=== PATIENT | male | born 1990 | race Caucasian/White ===

== ENCOUNTER 2024-07-29 20:57 | Emergency (ER) | payer OTHER ==
[~2024-07-29] VITALS: Ht 175.3 cm; Wt 104.5 kg
[2024-07-29 21:28] VITALS: BP 133/99; PULSE 72; RESP 18; TEMP 98.1; O2SAT 100
[2024-07-29] MEDS: ONDANSETRON HCL 4 MG/2 ML VIAL IVP ONE (22:52)
[2024-07-29 22:53] LABS: EOSINOPHILS % (AUTO) 0.7 % (1.0-6.0); HEMATOCRIT 42.8 % (41-53); HEMOGLOBIN 14.4 g/dL (13.5-17.5); LYMPHOCYTES # (AUTO) 1.3 K/uL (1.0-4.8); MEAN CORPUSCULAR HEMOGLOBIN 30.1 pg (26.0-34.0); MEAN CORPUSCULAR HGB CONC 33.6 G/dL (31.0-37.0); MEAN CORPUSCULAR VOLUME 90 fL (80-100); MONOCYTES # (AUTO) 0.3 K/uL (0.1-1.0); MONOCYTES % (AUTO) 8.3 % (2.0-9.0); NEUTROPHILS # (AUTO) 2.3 K/uL (1.8-7.7); PLATELET COUNT (AUTO) 152 K/uL (150-450); RED BLOOD CELL COUNT(AUTO) 4.78 MIL/uL (4.50-5.90); RED CELL DISTRIBUTION WIDTH 13.1 % (11.5-14.5)
[2024-07-29 23:02] LABS: ANION GAP 8 mmol/L (8-16); CARBON DIOXIDE 30 mmol/L (22-29); CHLORIDE 104 mmol/L (98-107); CREATININE 0.87 mg/dL (0.60-1.30); GLOMERULAR FILTR. RATE CALC > 60 mL/min (>60); GLUCOSE,RANDOM 94 mg/dL (70-110); POTASSIUM 4.1 mmol/L (3.5-5.1); SODIUM SERUM 142 mmol/L (136-145); UREA NITROGEN, BLOOD 11 mg/dL (7-18)
[2024-07-29 23:08] LABS: BILIRUBIN,DIRECT 0.1 mg/dL (0.00-0.20); BILIRUBIN,TOTAL 0.5 mg/dL (0.1-1.0); TOTAL PROTEIN, SERUM 7.4 g/dL (6.4-8.2)
[2024-07-30] MEDS ORDERED: SENN-376 PO (03:19)
[2024-07-30] MEDS ORDERED: POLY119P3 PO (03:19)
== END 2024-07-30 04:06 | disposition home or self-care (01) ==
LOC: EMS 20:57
DX: K59.00 Constipation, unspecified (principal); R10.13 Epigastric pain; F17.210 Nicotine dependence, cigarettes, uncomplicated; Z98.890 Other specified postprocedural states; Z88.5 Allergy status to narcotic agent
CPT/HCPCS: 99285; 96374; 80048; 80076; 83690; 85025; 36415; 74176; J2405; 99284

== ENCOUNTER 2024-10-08 20:14 | Emergency (ER) | payer OTHER ==
[~2024-10-08] VITALS: Ht 175.3 cm; Wt 77.3 kg
[~2024-10-08 20:14] MED LIST: POLY119P3 PO; SENN-376 PO
[2024-10-08 20:28] VITALS: TEMP 97.9
[2024-10-08 21:06] LABS: PLATELET COUNT (AUTO) 154 K/uL (150-450); RED BLOOD CELL COUNT(AUTO) 4.84 MIL/uL (4.50-5.90); RED CELL DISTRIBUTION WIDTH 13.5 % (11.5-14.5); WHITE BLOOD COUNT (AUTO) 5.6 K/uL (4.5-11.0)
[2024-10-08 21:23] LABS: CALCIUM, TOTAL 8.4 mg/dL (8.8-10.5); CREATININE 1.07 mg/dL (0.60-1.30); GLOMERULAR FILTR. RATE CALC > 60 mL/min (>60); GLUCOSE,RANDOM 101 mg/dL (70-110); SODIUM SERUM 141 mmol/L (136-145); UREA NITROGEN, BLOOD 24 mg/dL (7-18)
[2024-10-08] MEDS: IOHEXOL 9 MG/ML 500 ML BOTTLE PO ONE (21:26)
[2024-10-08 21:27] LABS: ASPARTATE AMINOTRANSFERASE 22.0 U/L (15-37); TOTAL PROTEIN, SERUM 7.3 g/dL (6.4-8.2)
[2024-10-08] MEDS: MAG HYDROX/ALUMINUM HYD/SIMETH ES 30 ML SUSPENSION UDCUP PO ONE (22:45)
[2024-10-08] MEDS: FAMOTIDINE 20 MG TABLET PO ONE (22:46)
[2024-10-09 00:29] VITALS: BP 112/67; PULSE 63; RESP 16; O2SAT 98
[2024-10-09] MEDS ORDERED: PANT-31 PO (01:12)
== END 2024-10-09 01:22 | disposition home or self-care (01) ==
LOC: EMS 20:14
DX: K21.9 Gastro-esophageal reflux disease without esophagitis (principal); K59.00 Constipation, unspecified; F17.210 Nicotine dependence, cigarettes, uncomplicated; Z98.890 Other specified postprocedural states; Z88.5 Allergy status to narcotic agent; Z79.899 Other long term (current) drug therapy
CPT/HCPCS: 99284; 74176; 80048; 80076; 83690; 85025; 36415; Q9967

== ENCOUNTER 2024-12-20 23:22 | Inpatient (IN) | payer OTHER ==
[~2024-12-20] VITALS: Ht 175.3 cm; Wt 82.0 kg
[~2024-12-20 23:22] MED LIST changes: +PANT-31 PO
[2024-12-21] MEDS: ONDANSETRON HCL 4 MG/2 ML VIAL IVP ONE (01:00)
[2024-12-21] MEDS: CloNIDine 0.1 MG/24 HOUR PATCH TD ONE (01:00)
[2024-12-21] MEDS: SODIUM CHLORIDE 0.9% 1,000 ML IV ONE (01:27)
[2024-12-21 01:33] LABS: PLATELET COUNT (AUTO) 190 K/uL (150-450); RED BLOOD CELL COUNT(AUTO) 4.54 MIL/uL (4.50-5.90); RED CELL DISTRIBUTION WIDTH 13.6 % (11.5-14.5); WHITE BLOOD COUNT (AUTO) 6.2 K/uL (4.5-11.0)
[2024-12-21 01:41] LABS: CALCIUM, TOTAL 8.5 mg/dL (8.8-10.5); CREATININE 0.88 mg/dL (0.60-1.30); GLOMERULAR FILTR. RATE CALC > 60 mL/min (>60); GLUCOSE,RANDOM 97 mg/dL (70-110); SODIUM SERUM 142 mmol/L (136-145); UREA NITROGEN, BLOOD 16 mg/dL (7-18)
[2024-12-21 01:44] LABS: ALCOHOL, BLOOD (SERUM) < 3 mg/dL (0-10)
[2024-12-21 01:47] LABS: ASPARTATE AMINOTRANSFERASE 20 U/L (15-37); TOTAL PROTEIN, SERUM 7.1 g/dL (6.4-8.2)
[2024-12-21] MEDS ORDERED: ONDANSETRON HCL 4 MG/2 ML VIAL IVP PRN (05:30)
[2024-12-21 06:43] LABS: APPEARANCE,URINE CLEAR (CLEAR); GLUCOSE, URINE (UA) NEGATIVE (NEGATIVE); LEUKOCYTE ESTERASE ,URINE NEGATIVE (NEGATIVE); NITRATE,URINE NEGATIVE (NEGATIVE); OCCULT BLOOD,URINE NEGATIVE (NEGATIVE); PH,URINE DRUG SCREEN 6.5 (5.0-8.0); SPECIFIC GRAVITIY, URINE 1.028 (1.003-1.030)
[2024-12-21 06:50] LABS: ALCOHOL, URINE DRUG SCREEN NEGATIVE (NEGATIVE); AMPHET/METH SCREEN,URINE POSITIVE (NEGATIVE); BARBITURATE SCREEN, URINE NEGATIVE (NEGATIVE); CANNABINOID SCREEN,URINE NEGATIVE (NEGATIVE); COCAINE SCREEN,URINE NEGATIVE (NEGATIVE); METHADONE SCREEN, URINE NEGATIVE (NEGATIVE)
[2024-12-21 08:00] VITALS: BP 118/80; PULSE 63; RESP 19; TEMP 97.3; O2SAT 100
[2024-12-21] MEDS: DOCUSATE SODIUM 100 MG CAPSULE PO SCH (08:51)
[2024-12-21] MEDS: HEPARIN SODIUM,PORCINE 5,000 UNITS/ML VIAL SQ SCH (08:51)
[2024-12-21 19:57] VITALS: BP 124/98; PULSE 90; RESP 18; TEMP 97.9; O2SAT 100
[2024-12-22] MEDS: ACETAMINOPHEN 325 MG TABLET PO PRN (02:02)
[2024-12-22 04:59] VITALS: BP 108/77; PULSE 54; RESP 17; TEMP 97.7; O2SAT 94
[2024-12-22 07:08] LABS: PLATELET COUNT (AUTO) 182 K/uL (150-450); RED BLOOD CELL COUNT(AUTO) 4.82 MIL/uL (4.50-5.90); RED CELL DISTRIBUTION WIDTH 13.8 % (11.5-14.5); WHITE BLOOD COUNT (AUTO) 6.7 K/uL (4.5-11.0)
[2024-12-22 07:15] LABS: CALCIUM, TOTAL 8.5 mg/dL (8.8-10.5); CREATININE 0.82 mg/dL (0.60-1.30); GLOMERULAR FILTR. RATE CALC > 60 mL/min (>60); GLUCOSE,RANDOM 91 mg/dL (70-110); SODIUM SERUM 140 mmol/L (136-145); UREA NITROGEN, BLOOD 11 mg/dL (7-18)
[2024-12-22 08:33] VITALS: BP 104/62; PULSE 54; RESP 18; TEMP 98.1; O2SAT 100
[2024-12-22] MEDS: POTASSIUM CHLORIDE 10 MEQ ER TABLET PO ONE (11:42)
[2024-12-22 20:05] VITALS: BP 114/73; PULSE 67; RESP 18; TEMP 97.5; O2SAT 98
[2024-12-23] MEDS: MELATONIN 3 MG TABLET PO PRN (00:50)
[2024-12-23 05:14] VITALS: BP 118/79; PULSE 61; RESP 18; TEMP 97.9; O2SAT 97
[2024-12-23 08:38] VITALS: BP 114/76; PULSE 70; RESP 16; TEMP 97.5; O2SAT 100
[2024-12-23] MEDS ORDERED: ACET-2247 PO (12:33)
[2024-12-23 19:49] VITALS: BP 106/70; PULSE 75; RESP 18; TEMP 97.9; O2SAT 97
== END 2024-12-23 20:25 | DRG 896 ==
LOC: EMS 23:22 → EDH 12-21 04:51 → 6S 12-21 06:57
PROVIDERS: ADMIT Internal Medicine; ATTEND Internal Medicine
DX: F11.13 Opioid abuse with withdrawal (principal); G92.8 Other toxic encephalopathy; E87.6 Hypokalemia; Z88.5 Allergy status to narcotic agent; Z87.891 Personal history of nicotine dependence
CPT/HCPCS: 80048; 80076; 80307; 81003; 83735; 85025; 96361; 96374; 99285; G0480; J1644; J2405; J7030; 36415-L1; 36415-TC